=== PATIENT | female | born 1975 | race Caucasian/White ===

== ENCOUNTER 2017-10-09 05:01 | Observation (INO) ==
[2017-10-09 05:34] LABS: Microscopic, Urine URINE MICROSCOPIC (MICROSCOPIC)
[2017-10-09 05:35] LABS: Appearance,Urine CLEAR (Clear); Basophils % 0.2 % (0.1-2.0); Bilirubin,Urine Negative (Negative); Blood, Urine Negative (Negative); Color,Urine YELLOW (Yellow); Eosinophils # 0.3 K/mm3 (0.0-0.4); Eosinophils % 2.1 % (0.1-12.0); Glucose,Urine (UA) Negative (Negative); Hematocrit 36.7 % (37.0-47.0); Hemoglobin 12.1 g/dL (12.2-16.2); Ketones,Urine Negative (Negative); Leukocyte Esterase,Urine TRACE (Negative); Lymphocytes # 1.8 K/mm3 (0.7-4.5); Lymphocytes % 12.2 K/mm3 (10-50); Mean Corpuscular HGB Conc 32.9 g/dL (31.8-35.4); Mean Corpuscular Hemoglobin 26.6 pg (27.0-31.2); Mean Platelet Volume 7.9 fl (7.4-10.4); Monocytes # 0.3 K/mm3 (0.1-1.0); Neutrophils # 12.5 K/mm3 (1.8-7.8); Neutrophils % 83.4 % (37.0-80.0); PH,Urine 5.5 (5.0-8.5); Platelet Count 351 K/mm3 (142-424); Protein,Urine Negative (Negative); Red Blood Count 4.53 M/mm3 (4.20-5.40); Red Cell Distribution Width 15.1 % (11.5-17.5); Specific Gravity, Urine >= 1.030 (1.005-1.030); Urobilinogen,Urine 0.2 EU/dl (0.2)
[2017-10-09 05:39] LABS: Amorphous Sediment,Urine Trace /lpf
[2017-10-09 06:00] LABS: Albumin Level 3.5 gm/dL (3.4-5.0); Albumin/Globulin Ratio 0.9 (1.1-1.8); Anion Gap 16.4 mEq/L (5-15); Bilirubin,Total 0.3 mg/dL (0.2-1.0); Calcium 9.3 mg/dL (8.5-10.1); Globulin 3.9 gm/dl (1.3-3.2); Lymphocytes % 19 % (10-50); Neutrophils % 75 % (42-76); Potassium 4.4 mmoL/L (3.5-5.1); RBC Morphology Normal; Total Cells Counted 100; Total Protein,Serum 7.4 gm/dL (6.4-8.2)
--- NOTE | 2017-10-09 06:36 | Emergency Department Note ---
ED Disposition Clinical Impression: Cholangitis Disposition: Admitted as Observation Condition on Discharge: Good Instructions: DI for Acute Abdomen - Critical Care Critical Care Time: No Attestation: On 10/09/17, the high probability of a clinically significant, sudden or life threatening deterioration of the following system(s) required my full and direct attention, intervention and personal management. The time I documented below is in addition to time spent performing reported procedures but includes the following listed in this critical care notation. Medical Decision Making - Medical Records Medical records reviewed: Yes: I reviewed the patient's medical records. - Saleem Inquiry Pt receiving controlled substance: No Vital Signs: 10/09/17 05:06 Temperature 97.7 F Temperature Source Oral Pulse Rate [Right Radial] 78 Respiratory Rate 20 Blood Pressure [Right Arm] 136/79 Blood Pressure Mean [Right Arm] 98 02 Sat by Pulse Oximetry 98 - Lab Data Lab results reviewed: Yes: I reviewed the patient's lab results. Lab Results 10/09/17 05:25: Urine Color Yellow, Urine Appearance Clear, Urine pH 5.5, Ur Specific [place] >= 1.030, Urine Protein Negative, Urine Glucose (UA) Negative, Urine Ketones Negative, Urine Blood Negative, Urine Nitrate Negative, Urine Bilirubin Negative, Urine Urobilinogen 0.2, Ur Leukocyte Esterase Trace, Urine WBC 3-5, Ur Squamous Epith Cells 10-20, Amorphous Sediment Trace 10/09/17 05:25: WBC 15.0 H, RBC 4.53, Hgb 12.1 L, Hct 36.7 L, MCV 81.0, MCH 26.6 L, MCHC 32.9, RDW 15.1, Plt Count 351, MPV 7.9, Neut % (Auto) 83.4 H, Lymph % (Auto) 12.2, [place] % (Auto) 2.0, Eos % (Auto) 2.1, Baso % (Auto) 0.2, Neut # (Auto) 12.5 H, Lymph # (Auto) 1.8, [place] # (Auto) 0.3, Eos # (Auto) 0.3, Baso # (Auto) 0.0, Total Counted 100, Neutrophils % (Manual) 75, Band Neutrophils % 6.0, Lymphocytes % (Manual) 19, Platelet Estimate Normal, RBC Morphology Normal 10/09/17 05:25: Sodium 135 L, Potassium 4.4, Chloride 101, Carbon Dioxide 22, Anion Gap 16.4 H, BUN 13, Creatinine 0.86, Estimated Creat Clear 136, Estimated GFR 73, Est GFR ( Amer) 88, Glucose 127 H, Calcium 9.3, Total Bilirubin 0.3, AST 28, ALT 28, Alkaline Phosphatase 92, Total Creatine Kinase 122, CK-MB ( CK-2) 0.5, CK-MB (CK-2) Rel Index 0.4, Troponin I 0.12 H, Total Protein 7.4, Albumin 3.5, Globulin 3.9 H, Albumin/Globulin Ratio 0.9 L, Amylase 39 10/09/17 05:25: Lipase 99 Result diagrams: 10/09/17 05:25 10/09/17 05:25 Orders (Tests/Meds): ED MEDICATIONS Discontinued Medications Generic Name Dose Route Start Last Admin Trade Name Freq PRN Reason Stop Dose Admin Belladonna Alkaloids 60 ml 10/09/17 05:15 10/09/17 05:20 Gi Cocktail 60ml Udc PO 10/09/17 05:16 60 ml ONCE ONE Administration Ondansetron HCl 4 mg 10/09/17 05:15 10/09/17 05:20 Zofran 4mg/2ml Vial IV 10/09/17 05:16 4 mg ONCE ONE Administration ORDERS Category Date Time Status US gallbladder Stat Exams 10/09/17 07:39 Ordered - Radiology Data #1 Image(s): Chest Image Reviewed: Yes I reviewed the patient's radiology image Preliminary Findings: Normal/NAD - CT Data CT Scan: Abdomen, Pelvis Time Received: 06:[address] Reviewed: Yes: I have viewed the radiologist's interpretation Preliminary Findings: Abnormal - ECG Data Tracing #1 I reviewed this ECG and interpreted as documented below: Normal Sinus Rhythm: Yes Ischemic changes: non-specific ST-T wave changes - Physician Consults Physician Consulted: ana Reason -: Admission Nausea/Vomiting/Diarrhea HPI - General Chief complaint: Abdominal Pain Stated complaint: Abdominal Pain Time Seen by Provider: 10/09/17 06:28 Mode of Arrival: Ambulatory Limitations: No Limitations Description of Symptoms (Recalled from ER Triage Doc. by RN): mid abd pain since last pm. nausea. pt states she is "having galbladder pain" - History of Present Illness HPI Narrative: this wf with upper abd pain with nausea with hx of breast cancer - no fever or diabetes and no known ht disease MD complaint: nausea, vomiting, abdominal pain Onset (ago): hour(s) Associated Abdominal Pain: Yes Severity: moderate - Related Data Home Medications Medication Instructions Recorded Confirmed tamoxifen 20 mg tablet 37.5 mg PO QDAY tab 08/08/17 10/09/17 venlafaxine ER 75 mg 75 mg PO QDAY 08/08/17 10/09/17 capsule,extended release 24 hr Allergies Allergy/AdvReac Type Severity Reaction Status Date / Time No Known Allergies Allergy Verified 10/09/17 05:10 [facility] History I have reviewed the patient's past medical history: Yes Medical History: Reports:: Cancer (breast) Denies:: Diabetes Mellitus Type 1, Diabetes Mellitus Type 2, MRSA Laterality Cases: Bilateral: Mastectomy Amputation: Yes (bilateral mastectomy) Fractures: No Comment: Reconstructive Surgery - Social History Smoking Status: Former smoker Alcohol Intake: never - Psychiatric History Expresses thoughts of harming self/others: None Suicide Plan Description: No Plan ROS Obtained: Yes All systems reviewed & no additional complaints - Constitutional Constitutional: Denies fever(s) - Eyes Eyes: Denies change in vision - ENT Ears, Nose, Mouth, and Throat: Denies sore throat - Cardiovascular Cardiovascular: Denies chest pain - Respiratory Respiratory: No cough - Gastrointestinal Gastrointestingal: Reports: abdominal pain, nausea, vomiting. Denies: diarrhea - Genitourinary Female Genitourinary: Denies dysuria, Denies flank pain - Musculoskeletal Musculoskeletal: Denies joint pain, Denies joint stiffness - Integumentary/Breasts Skin/Breast: Denies rash - Neurologic Neurologic: Denies seizure-like activity Physical Exam - General General appearance: alert - Head Head exam: normocephalic - Eye Eye exam: Present: PERRL, EOMI. Absent: scleral icterus - ENT ENT exam: Present: mucous membranes dry - Neck Neck exam: Present: trachea midline - Respiratory Respiratory exam: Present: normal lung sounds bilaterally. Absent: respiratory distress - Cardiovascular Cardiovascular exam: Present: regular rate, systolic murmur - Abdominal Exam Abdominal exam: Present: soft, tenderness, Garcia's sign. Absent: guarding, rebound Abdominal tenderness: Present: RUQ - Extremities Exam Extremities exam: Absent: full ROM - Neurological Exam Neurological exam: Present: alert, oriented X3, CN II-XII intact - Skin Skin exam: Absent: rash
--- NOTE | 2017-10-09 09:36 | History & Physical Report ---
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 This was associated with nausea but she did not vomit. The pain persisted throughout the night and she presented to the ER early this AM. She is usually constipated and bowels have been moving. She denies dark and bloody stools. With evaluation in the ER US of the RUQ revealed and large Gallstone. WBC's were elevated as well. Troponin I was slightly elevated at 0.12. The decision was made to admit her with a surgical consultation. Will repeat TI At time of exam patient's pain has improved but not resoleved. She has received a GI cocktail and Zofran . <DarrylSun 10/09/17 13:14> [facility] History Medical History: Reports:: Cancer (breast), Gastroesophageal Reflux Disease(GERD ), Migraine Denies:: Atherosclerotic Heart Disease, Chronic Obstructive Pulmonary Disease (COPD), Coronary Artery Disease, Diabetes Mellitus Type 1, Diabetes Mellitus Type 2, MRSA <DarrylSun 10/09/17 09:43> Other Medical History: Denies: Hypothyroidism <DarrylSun 10/09/17 09:43> Comment: hyperlipidemia from chemo; neuropathy from chemo;hot flushes <Sun Andrews 10/09/17 09:43> Laterality Cases: Bilateral: Mastectomy, Tonsillectomy <Sun Andrews 09:43> Other Surgeries: Yes: Cardiac Surgery, Dilation and Curettage <Sun Andrews 10/09/17 11:25> Amputation: Yes (bilateral mastectomy) <Sun Andrews 10/09/17 09:36> Fractures: No <Sun Andrews 10/09/17 09:36> - *Social History Smoking Status: Former smoker <Sun Andrews 10/09/17 09:36> Alcohol Intake: never <Sun Andrews 10/09/17 09:36> - Psychiatric History Expresses thoughts of harming self/others: None <Sun Andrews 10/09/17 09: 36> Suicide Plan Description: No Plan <Sun Andrews 10/09/17 09:36> *Family Hx:: no Cancer, no Coronary Artery Disease, no Diabetes <Sun Andrews 10/09/17 11:25> Review of Systems - Constitutional Denies body ache(s) <Sun Andrews 10/09/17 11:25> - ENT Denies difficulty swallowing, Denies ear pain, Denies sore throat <Sun Andrews 10/09/17 11:25> - *Cardiovascular Denies chest pain, Denies shortness of breath, Denies rapid, pounding, or irregular heartbeat <Sun Andrews 10/09/17 11:25> - *Respiratory Denies cough, Denies shortness of breath <Sun Andrews 10/09/17 11:25> - *Gastrointestinal Reports abdominal pain, Reports constipation, Reports heartburn, Reports nausea , Denies change in bowel habits, Denies vomiting blood, Denies vomiting < Sun Andrews 10/09/17 11:25> - *Genitourinary Reports absent period, Reports hot flashes, Denies painful urination <Sun Andrews 10/09/17 11:25> - *Musculoskeletal Comments: neuropathy of hands and feet from chemo; Effexor has helped <Sun Andrews 10/09/17 11:25> - *Neurologic Denies seizure-like activity <Sun Andrews 10/09/17 09:36> Meds Home Medications Medication Instructions Recorded Confirmed Type tamoxifen 20 mg tablet 37.5 mg PO QDAY tab 08/08/17 10/09/17 History venlafaxine ER 75 mg 75 mg PO QDAY 08/08/17 10/09/17 History capsule,extended release 24 hr <Diony Puga 10/09/17 14:02> Allergies Allergy/AdvReac Type Severity Reaction Status Date / Time docetaxel [From Taxotere] Allergy Verified 10/09/17 10:28 <Diony Puga 10/09/17 14:02> Exam Vital signs and Labs for Last 24 Hours: Temp Pulse Resp BP Pulse Ox 98.2 F 71 188 H 127/79 95 10/09/17 10:13 10/09/17 10:14 10/09/17 10:14 10/09/17 10:13 10/09/17 10:14 Laboratory Results - last 24 hr 10/09/17 09:45: Troponin I < 0.02 <Diony Puga - 10/09/17 14:02> Temp Pulse Resp BP Pulse Ox 98.0 F 56 L 18 119/59 98 10/09/17 09:18 10/09/17 09:18 10/09/17 09:18 10/09/17 09:18 10/09/17 05:06 <Sun Andrews - 10/09/17 09:36> I & O for Last 24 hours: Intake & Output 10/07/17 10/08/17 10/09/17 10/10/17 11:59 11:59 11:59 11:59 Intake Total 480 / 480 Balance 480 / 480 Weight 219 lb 5 oz 219 lb 4.983 oz <Diony Puga - 10/09/17 14:02> Radiology Reports for the Last 24 Hours: 10/09/17 CT of abdomen and pelvis IMPRESSION: 1. Thickening of the colon which could be due to nondistention or colitis. 2. Minimal haziness of the pericholecystic fat nonspecific. Gallbladder ultrasound may be of further value. 3. Possible 4 cm left ovarian cyst which may be evaluated with ultrasound if clinically warranted 4. No evidence of appendicitis or obstructing ureteral calculus 10/09/17 CXR IMPRESSION: Mild bibasilar atelectasis 10/09/17 RUQ US IMPRESSION: Distended gallbladder with cholelithiasis <Sun Andrews - 10/09/17 13:09> - Constitutional no acute distress <AndrewsSun - 10/09/17 11:25> - *Routine HEENT Exam Eye: Present: PERRL. Absent: conjunctival icterus, scleral injection <Sun Andrews 10/09/17 11:25> ENT: Present: mucous membranes moist, oropharynx clear, dentition normal < DarrylSun - 10/09/17 11:25> - *Routine Neck Exam Present: supple, thyromegaly. Absent: carotid bruit, lymphadenopathy <Sun Andrews 10/09/17 11:25> - *Routine Respiratory Exam Present: CTA bilaterally (A&P) <Sun Andrews 10/09/17 13:09> - *Routine Cardiovascular Exam Present: RRR <Sun Andrews 10/09/17 11:25> - *Routine Abdominal Exam Present: soft, normoactive bowel sounds, tenderness (epigastrium and RUQ; + Garcia's) <Sun Andrews 10/09/17 11:25> - *Routine Extremities Exam Absent: edema, calf tenderness <Sun Andrews 10/09/17 11:25> - *Routine Neurological Exam Present: alert, oriented X3 <Sun Andrews 10/09/17 13:09> H&P: Result - Labs Labs: Cardiac Enzymes 10/09/17 Range/Units 09:45 Troponin I < 0.02 (0.00-0.06) ng/ml <Diony Puga 10/09/17 14:02> Assessment and Plan (1) Cholelithiases Current visit: Yes Status: Acute Category: Medical Code(s): K80.20 - Calculus of gallbladder without cholecystitis without obstruction (2) History of breast cancer Current visit: Yes Status: Chronic Category: Medical Code(s): Z85.3 - Personal history of malignant neoplasm of breast (3) GERD (gastroesophageal reflux disease) Current visit: Yes Status: Acute Category: Medical Code(s): K21.9 - Gastro-esophageal reflux disease without esophagitis <Diony Puga 10/09/17 14:02> (1) Cholelithiases Current visit: Yes Status: Acute Category: Medical Code(s): K80.20 - Calculus of gallbladder without cholecystitis without obstruction (2) History of breast cancer Current visit: Yes Status: Chronic Category: Medical Code(s): Z85.3 - Personal history of malignant neoplasm of breast (3) GERD (gastroesophageal reflux disease) Current visit: Yes Status: Acute Category: Medical Code(s): K21.9 - Gastro-esophageal reflux disease without esophagitis <Sun Andrews 10/09/17 13:10> - Assessment and plan all Dx Assessment and Plan for all problems:: Saw patient, concur with above note. <VivienDiony 10/09/17 14:02> Patient has been seen by Surgeon and plan is for [place] in the AM. She is on ABX, PPI, antinausea med and IVF. <Sun Andrews - 10/09/17 13:14>
--- NOTE | 2017-10-09 12:32 | Consult Report ---
*Admission Date: 10/09/17 *History of present illness: Patient is a pleasant 42-year-old white female history of breast cancer who has undergone bilateral mastectomy with reconstruction one year ago. She was in her usual state of health until yesterday evening approximately 9 PM at which time she developed sudden onset of sharp severe epigastric pain. There was some radiation to the right upper quadrant. This persisted throughout the evening and she presented to the emergency department early this morning. She was found to have a mild leukocytosis. She underwent CT scan which revealed findings of probable cholecystitis. She was admitted for inpatient management and ultrasound was formed which revealed gallstone with sonographic evidence of cholecystitis. Surgical consultation was obtained. Of note, she did have slightly above normal troponin which had normalized on recheck a few hours later. Review of Systems - Constitutional Reports anorexia - Eyes Denies change in vision - ENT Denies abnormal hearing - *Cardiovascular Denies chest pain - *Respiratory Denies shortness of breath - *Gastrointestinal Reports abdominal pain - *Genitourinary Denies painful urination - *Musculoskeletal Denies abnormal walking - *Neurologic Denies seizure-like activity [facility] History Medical History: Reports:: Cancer (breast), Gastroesophageal Reflux Disease(GERD ), Hyperlipidemia, Migraine Denies:: Atherosclerotic Heart Disease, Chronic Obstructive Pulmonary Disease (COPD), Coronary Artery Disease, Diabetes Mellitus Type 1, Diabetes Mellitus Type 2, MRSA Other Medical History: Denies: Hypothyroidism Laterality Cases: Bilateral: Lumpectomy, Mastectomy, Tonsillectomy Other Surgeries: Yes: Cardiac Surgery, Dilation and Curettage, Other Amputation: Yes (bilateral mastectomy) Fractures: No - *Social History Educational Level: Completed College Smoking Status: Former smoker Alcohol Intake: never Alcohol Intake Frequency:: holidays/special occasions only Occupational Status: employed Housing: house Household Members: spouse - Psychiatric History Expresses thoughts of harming self/others: None Suicide Plan Description: No Plan *Family Hx:: no Cancer, no Coronary Artery Disease, no Diabetes Meds Home Medications Medication Instructions Recorded Confirmed Type tamoxifen 20 mg tablet 37.5 mg PO QDAY tab 08/08/17 10/09/17 History venlafaxine ER 75 mg 75 mg PO QDAY 08/08/17 10/09/17 History capsule,extended release 24 hr Allergies Allergy/AdvReac Type Severity Reaction Status Date / Time docetaxel [From Taxotere] Allergy Verified 10/09/17 10:28 Exam Vital signs and Labs for Last 24 Hours: Temp Pulse Resp BP Pulse Ox 98.2 F 71 188 H 127/79 95 10/09/17 10:13 10/09/17 10:14 10/09/17 10:14 10/09/17 10:13 10/09/17 10:14 Laboratory Results - last 24 hr 10/09/17 09:45: Troponin I < 0.02 I & O for Last 24 hours: Intake & Output 10/07/17 10/08/17 10/09/17 10/10/17 11:59 11:59 11:59 11:59 Weight 219 lb 5 oz - Constitutional no acute distress - *Routine Respiratory Exam Present: CTA bilaterally - *Routine Cardiovascular Exam Present: RRR - *Routine Abdominal Exam Present: soft, tenderness Comments: She has tenderness in the epigastrium and right upper quadrant without guarding or rebound. Results - Labs 10/09/17 05:25 10/09/17 05:25 Laboratory Results - last 24 hr 10/09/17 09:45: Troponin I < 0.02 Assessment and Plan - Assessment and plan all Dx Assessment and Plan for all problems:: Patient has signs and symptoms with findings consistent with acute cholecystitis. Agree with antibiotics. Plan for laparoscopic with possibly open cholecystectomy tomorrow.
[2017-10-10 06:45] LABS: Basophils % 0.3 % (0.1-2.0); Eosinophils # 0.4 K/mm3 (0.0-0.4); Eosinophils % 5.3 % (0.1-12.0); Hematocrit 36.8 % (37.0-47.0); Hemoglobin 11.7 g/dL (12.2-16.2); Lymphocytes # 1.8 K/mm3 (0.7-4.5); Mean Corpuscular HGB Conc 31.9 g/dL (31.8-35.4); Mean Corpuscular Hemoglobin 26.5 pg (27.0-31.2); Mean Platelet Volume 7.6 fl (7.4-10.4); Monocytes # 0.4 K/mm3 (0.1-1.0); Monocytes % 5.6 % (1.7-9.3); Neutrophils # 4.9 K/mm3 (1.8-7.8); Neutrophils % 64.8 % (37.0-80.0); Platelet Count 288 K/mm3 (142-424); Red Blood Count 4.43 M/mm3 (4.20-5.40); Red Cell Distribution Width 15.2 % (11.5-17.5); White Blood Count 7.6 K/mm3 (4.8-10.8)
[2017-10-10 07:04] LABS: Anion Gap 9.9 mEq/L (5-15); Potassium 3.9 mmoL/L (3.5-5.1)
--- NOTE | 2017-10-10 07:04 | Progress Note ---
Subjective Patient reports: feels better Narrative: Patient feeling better with less pain. Exam Vital signs and Labs for Last 24 Hours: Temp Pulse Resp BP Pulse Ox 98.0 F 70 18 94/41 92 L 10/10/17 04:00 10/10/17 04:00 10/10/17 04:00 10/10/17 04:00 10/10/17 04:00 Laboratory Results - last 24 hr 10/09/17 09:45: Troponin I < 0.02 10/10/17 06:15: WBC 7.6 D, RBC 4.43, Hgb 11.7 L, Hct 36.8 L, MCV 83.0, MCH 26.5 L, MCHC 31.9, RDW 15.2, Plt Count 288, MPV 7.6, Neut % (Auto) 64.8, Lymph % (Auto) 24.0, [place] % (Auto) 5.6, Eos % (Auto) 5.3, Baso % (Auto) 0.3, Neut # ( Auto) 4.9, Lymph # (Auto) 1.8, [place] # (Auto) 0.4, Eos # (Auto) 0.4, Baso # (Auto ) 0.0 I & O for Last 24 hours: Intake & Output 10/07/17 10/08/17 10/09/17 10/10/17 11:59 11:59 11:59 11:59 Intake Total 3182 / 3182 Balance 3182 / 3182 Weight 219 lb 5 oz 219 lb 4.983 oz - *Routine Abdominal Exam Present: soft Progress Note: A&P (1) Cholelithiases Status: Acute Assessment and plan: Cholecystectomy today. Current Visit: Yes (2) History of breast cancer Status: Chronic Current Visit: Yes (3) GERD (gastroesophageal reflux disease) Status: Acute Current Visit: Yes
--- NOTE | 2017-10-10 07:27 | Pharmacy Consult Notes ---
[facility] Pharmacy VTE Monitoring - Patient Demographics Admission date: 10/09/17 Report Date: 10/10/17 Time: 07:27 Allergies/Adverse Reactions: Patient Allergies docetaxel [From Taxotere] Allergy (Verified 10/09/17 10:28) Height: 1.68 m Weight: 99.478 kg Patient Problems: Current Active Problems Cholangitis (Acute) Cholelithiases (Acute) History of breast cancer (Chronic) GERD (gastroesophageal reflux disease) (Acute) - VTE Risk Labs: VTE Related Lab Results Hgb 11.7 g/dL (12.2-16.2) L 10/10/17 06:15 Hct 36.8 % (37.0-47.0) L 10/10/17 06:15 Plt Count 288 K/mm3 (142-424) 10/10/17 06:15 BUN 8 mg/dL (7-18) D 10/10/17 06:15 Creatinine 0.91 mg/dL (0.55-1.02) 10/10/17 06:15 Estimated Creat Clear 128 mL/min (0-300) 10/10/17 06:15 Was VTE Risk Assessment Performed: Yes VTE Score: 2 VTE Risk Level: Low Risk Clinical Trial Participant: No - Prophylaxis VTE Prophylaxis Ordered?: Yes Types of VTE Prophylaxis: TEDS Knee High Location of Applied Device: Bilateral Lower Extremeties
--- NOTE | 2017-10-10 08:09 | Progress Note ---
<Sun Andrews - Last Filed: 10/10/17 08:06> Internal Medicine - PN: Subj *Date: 10/10/17 *Time: 08:06 Interval history: Feeling much better this a.m. States she slept. She had clear liquids yesterday without any problems. N.p.o. at present for surgery this a.m.; she is voiding QS. She is not nauseated, has not vomited, and abdominal pain is gone. White blood cell count is normal today. Second troponin I was normal.. Exam Vital signs and Labs for Last 24 Hours: Temp Pulse Resp BP Pulse Ox 97.8 F 67 18 99/41 93 L 10/10/17 07:38 10/10/17 07:38 10/10/17 07:38 10/10/17 07:38 10/10/17 07:38 Laboratory Results - last 24 hr 10/09/17 09:45: Troponin I < 0.02 10/10/17 06:15: WBC 7.6 D, RBC 4.43, Hgb 11.7 L, Hct 36.8 L, MCV 83.0, MCH 26.5 L, MCHC 31.9, RDW 15.2, Plt Count 288, MPV 7.6, Neut % (Auto) 64.8, Lymph % (Auto) 24.0, [place] % (Auto) 5.6, Eos % (Auto) 5.3, Baso % (Auto) 0.3, Neut # ( Auto) 4.9, Lymph # (Auto) 1.8, [place] # (Auto) 0.4, Eos # (Auto) 0.4, Baso # (Auto ) 0.0 10/10/17 06:15: Sodium 140, Potassium 3.9, Chloride 108 H, Carbon Dioxide 26, Anion Gap 9.9, BUN 8 D, Creatinine 0.91, Estimated Creat Clear 128, Estimated GFR 68, Est GFR ( Amer) 82, Glucose 94 I & O for Last 24 hours: Intake & Output 10/07/17 10/08/17 10/09/17 10/10/17 11:59 11:59 11:59 11:59 Intake Total 3182 / 3182 Balance 3182 / 3182 Weight 219 lb 5 oz 219 lb 4.983 oz - Constitutional no acute distress - *Routine Respiratory Exam Present: CTA bilaterally (Anteriorly and posteriorly) - *Routine Cardiovascular Exam Present: RRR - *Routine Abdominal Exam Present: soft, normoactive bowel sounds, tenderness. Absent: distended, guarding Comments: Mild tenderness in epigastrium no right upper quadrant tenderness - *Routine Extremities Exam Absent: edema, calf tenderness, tenderness - *Routine Neurological Exam Present: alert, oriented X3 Assessment and Plan (1) Cholelithiases Current visit: Yes Status: Acute Category: Medical Code(s): K80.20 - Calculus of gallbladder without cholecystitis without obstruction (2) History of breast cancer Current visit: Yes Status: Chronic Category: Medical Code(s): Z85.3 - Personal history of malignant neoplasm of breast (3) GERD (gastroesophageal reflux disease) Current visit: Yes Status: Acute Category: Medical Code(s): K21.9 - Gastro -esophageal reflux disease without esophagitis - Assessment and plan all Dx Assessment and Plan for all problems:: For cholecystectomy this a.m. <Diony Puga - Last Filed: 10/10/17 08:41> Internal Medicine - PN: Subj *Date: 10/10/17 *Time: 08:40 Exam Vital signs and Labs for Last 24 Hours: Temp Pulse Resp BP Pulse Ox 97.8 F 67 18 99/41 93 L 10/10/17 07:38 10/10/17 07:38 10/10/17 07:38 10/10/17 07:38 10/10/17 07:38 Laboratory Results - last 24 hr 10/09/17 09:45: Troponin I < 0.02 10/10/17 06:15: WBC 7.6 D, RBC 4.43, Hgb 11.7 L, Hct 36.8 L, MCV 83.0, MCH 26.5 L, MCHC 31.9, RDW 15.2, Plt Count 288, MPV 7.6, Neut % (Auto) 64.8, Lymph % (Auto) 24.0, [place] % (Auto) 5.6, Eos % (Auto) 5.3, Baso % (Auto) 0.3, Neut # ( Auto) 4.9, Lymph # (Auto) 1.8, [place] # (Auto) 0.4, Eos # (Auto) 0.4, Baso # (Auto ) 0.0 10/10/17 06:15: Sodium 140, Potassium 3.9, Chloride 108 H, Carbon Dioxide 26, Anion Gap 9.9, BUN 8 D, Creatinine 0.91, Estimated Creat Clear 128, Estimated GFR 68, Est GFR ( Amer) 82, Glucose 94 I & O for Last 24 hours: Intake & Output 10/07/17 10/08/17 10/09/17 10/10/17 11:59 11:59 11:59 11:59 Intake Total 3182 / 3182 Balance 3182 / 3182 Weight 219 lb 5 oz 219 lb 4.983 oz Assessment and Plan (1) Cholelithiases Current visit: Yes Status: Acute Category: Medical Code(s): K80.20 - Calculus of gallbladder without cholecystitis without obstruction (2) History of breast cancer Current visit: Yes Status: Chronic Category: Medical Code(s): Z85.3 - Personal history of malignant neoplasm of breast (3) GERD (gastroesophageal reflux disease) Current visit: Yes Status: Acute Category: Medical Code(s): K21.9 - Gastro -esophageal reflux disease without esophagitis - Assessment and plan all Dx Assessment and Plan for all problems:: Saw patient, concur with above note.
--- NOTE | 2017-10-10 14:23 | Operative Note ---
Date of procedure: 10/10/17 Pre-op Diagnosis:: Cholecystitis Post-op Diagnosis:: Acute calculus cholecystitis Procedure performed:: Laparoscopic cholecystectomy Surgeon:: Subhash Gao MD Unit Coordinator(s):: Nancy Ryder FINANCIAL INSTITUTION MANAGER:: Tariq Stanley Anesthesia: GETA Estimated blood loss (mL): 30 Clinical Note:: Patient is a 42-year-old white female who was admitted early yesterday signs and symptoms consistent with acute cholecystitis. She was started on intravenous antibiotics. Surgical consultation was obtained. Plan was made for cholecystectomy. Following morning, this morning on 10/10/17, patient actually felt better. She was scheduled for cholecystectomy earlier that afternoon. Operative findings:: Patient had an acutely inflamed distended gallbladder with thickening with edema and pericholecystic fluid. Operative note:: Consent was obtained and patient was taken to the operating room. She was positioned in a supine position and general. Abdomen was prepped and draped in the standard surgical fashion. Subumbilical skin incision was made and while performing abdominal wall lift Veress needle was inserted. CO2 pneumoperitoneum was achieved 15 mmHg. 10/11 mm optical trocar was inserted at the umbilicus. Intraperitoneal contents were visualized. She was positioned in reverse Trendelenburg left side down and a couple of 5 mm trochars were inserted in the right upper abdomen. 10 mm trocar was inserted in the epigastrium. She was found to have an acutely inflamed gallbladder. 30 angled laparoscope was inserted. Gallbladder was grasped and retracted anteriorly and superiorly of the dome the liver. Gallbladder was thickened, tense, edematous. Infundibulum/Alexis's pouch the gallbladder was retracted anterior laterally. There is appreciable fatty infiltration around the neck of the gallbladder. Blunt dissection was carried out bluntly dissecting free the cystic structures. Ultimately the cystic duct and cystic artery were clearly identified and isolated. Cystic duct was multiply clipped and then divided. Cystic artery was carefully coagulated with Alfred ultrasonic harmonic amado and divided. The gallbladder was dissected free from the liver in a retrograde fashion using Alfred ultrasonic harmonic amado. Due to the acute inflammatory process the gallbladder somewhat spontaneously partially peeled free from the liver bed. Gallbladder was placed within an Endo Catch retrieval device and removed from the peritoneal cavity via the umbilical trocar site which required some extension of the fascial and skin incisions for delivery. Gallbladder fossa and perihepatic space were irrigated and aspirated until clear. Use of electrocautery was used on the gallbladder fossa for good hemostasis. Trochars were removed as CO2 pneumoperitoneum was evacuated. Fascia at the umbilicus was closed with interrupted 0 Vicryl [id number] sutures. Local anesthetic was infiltrated. Skin incisions were closed with 4-0 Monocryl in a subcuticular fashion. Steri-Strips and dressings were applied. Condition: stable Disposition: PACU Complications:: None immediately apparent
--- NOTE | 2017-10-10 14:30 | Progress Note ---
[facility] Anesthesia Checklist - Structural Data Admitted From: Inpatient Planned Operative Procedure/s: lap lizette Consent for Planned Operative Procedure(s) Verified: Yes Verified Documents: Surgical Consent - Airway Assessment C-Spine Mobility Assessed: Yes TMJ Mobility Assessed: Yes Dentition: Good Dentition - Neurological Assessment Level of Consciousness: Awake, Alert - Anesthesia Plan Anesthesia Risk discussed: Yes Anesthesia Plan: Verified ASA Class: II Anesthesia Type: General [facility] Anesthesia HX I have reviewed the patient's past medical history: Yes Medical History: Reports:: Cancer (breast), Gastroesophageal Reflux Disease(GERD ), Hyperlipidemia, Migraine Denies:: Atherosclerotic Heart Disease, Chronic Obstructive Pulmonary Disease (COPD), Coronary Artery Disease, Diabetes Mellitus Type 1, Diabetes Mellitus Type 2, MRSA Other Medical History: Denies: Hypothyroidism Laterality Cases: Bilateral: Lumpectomy, Mastectomy, Tonsillectomy Other Surgeries: Yes: Cardiac Surgery, Dilation and Curettage, Other Amputation: Yes (bilateral mastectomy) Fractures: No *Family Hx:: no Cancer, no Coronary Artery Disease, no Diabetes
--- NOTE | 2017-10-10 14:31 | Progress Note ---
[facility] Anesthesia Record Part II Discharge Time: 15:10 Destination: floor PACU nurse assessment reviewed?: Yes Patient Condition:: Good Anesthesia Complications:: None
--- NOTE | 2017-10-10 14:31 | Progress Note ---
[facility] Anesthesia Record Part I Intake, IV Amount: 1,200 Estimated blood loss (mL): 0 Urine output (mL): 0 Blood Pressure: 89/45 SaO2: 98 Pulse Rate: 75 Respiratory Rate: 12 Temperature: 97.9 F Patient is:: Awake, Stable Stable to PACU at:: 14:30
--- NOTE | 2017-10-11 07:00 | Progress Note ---
Subjective Patient reports: feels better Narrative: Some soreness. Tolerating bland diet. Exam Vital signs and Labs for Last 24 Hours: Temp Pulse Resp BP Pulse Ox 98.9 F 76 16 105/46 94 L 10/11/17 04:00 10/11/17 04:00 10/11/17 04:00 10/11/17 04:00 10/11/17 04:00 Laboratory Results - last 24 hr 10/10/17 06:15: Sodium 140, Potassium 3.9, Chloride 108 H, Carbon Dioxide 26, Anion Gap 9.9, BUN 8 D, Creatinine 0.91, Estimated Creat Clear 128, Estimated GFR 68, Est GFR ( Amer) 82, Glucose 94 10/10/17 12:13: Urine HCG, Qual Negative I & O for Last 24 hours: Intake & Output 10/08/17 10/09/17 10/10/17 10/11/17 11:59 11:59 11:59 11:59 Intake Total 3182 / 3182 3455 / 3455 Output Total 1100 / 1100 Balance 3182 / 3182 2355 / 2355 Weight 219 lb 5 oz 219 lb 4.983 oz - *Routine Abdominal Exam Present: soft Comments: Some serosanguineous drainage at umbilical incision. Progress Note: A&P (1) Cholelithiases Status: Acute Assessment and plan: Okay for discharge today. Will see in office in two weeks. Current Visit: Yes (2) History of breast cancer Status: Chronic Current Visit: Yes (3) GERD (gastroesophageal reflux disease) Status: Acute Current Visit: Yes
[2017-10-11 07:25] VITALS: BP 138/84
--- NOTE | 2017-10-11 08:03 | Progress Note ---
<Sun Andrews - Last Filed: 10/11/17 08:00> Internal Medicine - PN: Subj *Date: 10/11/17 *Time: 08:00 Interval history: Patient had a cholecystectomy yesterday. She was sore last evening and is less sore this morning. She denies nausea. She has been tolerating bland diet. She is voiding without difficulty. She has been seen by Dr. Gao this morning and plans to go home. She ambulates without problems. She denies chest pain and shortness of breath Exam Vital signs and Labs for Last 24 Hours: Temp Pulse Resp BP Pulse Ox 98.2 F 65 20 138/84 96 10/11/17 07:23 10/11/17 07:23 10/11/17 07:23 10/11/17 07:23 10/11/17 07:23 Laboratory Results - last 24 hr 10/10/17 12:13: Urine HCG, Qual Negative I & O for Last 24 hours: Intake & Output 10/08/17 10/09/17 10/10/17 10/11/17 11:59 11:59 11:59 11:59 Intake Total 3182 / 3182 3455 / 3455 Output Total 1100 / 1100 Balance 3182 / 3182 2355 / 2355 Weight 219 lb 5 oz 219 lb 4.983 oz - Constitutional no acute distress - *Routine Respiratory Exam Present: CTA bilaterally (Anteriorly and posteriorly) - *Routine Cardiovascular Exam Present: RRR - *Routine Abdominal Exam Present: soft, normoactive bowel sounds, tenderness Comments: Postoperative tenderness. Wounds with Telfa dressing clean and dry - *Routine Extremities Exam Absent: edema, calf tenderness - *Routine Neurological Exam Present: alert, oriented X3 Assessment and Plan (1) Cholelithiases Current visit: Yes Status: Acute Category: Medical Code(s): K80.20 - Calculus of gallbladder without cholecystitis without obstruction (2) History of breast cancer Current visit: Yes Status: Chronic Category: Medical Code(s): Z85.3 - Personal history of malignant neoplasm of breast (3) GERD (gastroesophageal reflux disease) Current visit: Yes Status: Acute Category: Medical Code(s): K21.9 - Gastro -esophageal reflux disease without esophagitis (4) S/P cholecystectomy Current visit: Yes Status: Acute Category: Surgical Code(s): Z90.49 - Acquired absence of other specified parts of digestive tract - Assessment and plan all Dx Assessment and Plan for all problems:: Patient will be discharged today. She will continue on with a bland diet. <Diony Puga - Last Filed: 10/11/17 08:30> Internal Medicine - PN: Subj *Date: 10/11/17 *Time: 08:30 Exam Vital signs and Labs for Last 24 Hours: Temp Pulse Resp BP Pulse Ox 98.2 F 65 20 138/84 96 10/11/17 07:23 10/11/17 07:23 10/11/17 07:23 10/11/17 07:23 10/11/17 07:23 Laboratory Results - last 24 hr 10/10/17 12:13: Urine HCG, Qual Negative I & O for Last 24 hours: Intake & Output 10/08/17 10/09/17 10/10/17 10/11/17 11:59 11:59 11:59 11:59 Intake Total 3182 / 3182 3455 / 3455 Output Total 1100 / 1100 Balance 3182 / 3182 2355 / 2355 Weight 219 lb 5 oz 219 lb 4.983 oz Assessment and Plan (1) Cholelithiases Current visit: Yes Status: Acute Category: Medical Code(s): K80.20 - Calculus of gallbladder without cholecystitis without obstruction (2) History of breast cancer Current visit: Yes Status: Chronic Category: Medical Code(s): Z85.3 - Personal history of malignant neoplasm of breast (3) GERD (gastroesophageal reflux disease) Current visit: Yes Status: Acute Category: Medical Code(s): K21.9 - Gastro -esophageal reflux disease without esophagitis (4) S/P cholecystectomy Current visit: Yes Status: Acute Category: Surgical Code(s): Z90.49 - Acquired absence of other specified parts of digestive tract - Assessment and plan all Dx Assessment and Plan for all problems:: Saw patient, concur with above note.
--- NOTE | 2017-10-11 11:39 | Discharge Summary ---
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 This was associated with nausea but she did not vomit. The pain persisted throughout the night and she presented to the ER early this AM. She is usually constipated and bowels have been moving. She denies dark and bloody stools. With evaluation in the ER US of the RUQ revealed and large Gallstone. WBC's were elevated as well. Troponin I was slightly elevated at 0.12. The decision was made to admit her with a surgical consultation. Will repeat TI. Hospital Course Hospital Course: The patient was started on abx and was seen by Dr. Gao. He planned for cholecystectomy. Her WBC normalized and her second troponin I was normal. She had a cholecystectomy and tolerated this well. She was able to eat a bland diet post surgery and was stable to be discharged home with a f/u with Dr. Gao. Objective Vital signs: Temp Pulse Resp BP Pulse Ox 98.2 F 65 20 138/84 96 10/11/17 07:23 10/11/17 07:23 10/11/17 07:23 10/11/17 07:23 10/11/17 07:23 Narrative: - Constitutional no acute distress - *Routine HEENT Exam Eye: Present: PERRL. Absent: conjunctival icterus, scleral injection ENT: Present: mucous membranes moist, oropharynx clear, dentition normal - *Routine Neck Exam Present: supple, thyromegaly. Absent: carotid bruit, lymphadenopathy - *Routine Respiratory Exam Present: CTA bilaterally (A&P) - *Routine Cardiovascular Exam Present: RRR - *Routine Abdominal Exam Present: soft, normoactive bowel sounds, tenderness (epigastrium and RUQ; + Garcia's) - *Routine Extremities Exam Absent: edema, calf tenderness - *Routine Neurological Exam Present: alert, oriented X3 Results Labs on day of discharge: Labs from last 24 hours 10/10/17 12:13 Urine HCG, Qual Negative DS: Diagnosis - Discharge Diagnosis (1) Cholelithiases Status: Acute (2) GERD (gastroesophageal reflux disease) Status: Acute (3) S/P cholecystectomy Status: Acute (4) History of breast cancer Status: Chronic Discharge Plan - Patient Discharge Instructions ACTIVITY: Limited activity (per Dr. Gao) DIET: continue same diet Patient Instructions: DI for Cholecystectomy, Cholecystectomy -- Laparoscopic Surgery - Follow up Plan Follow up with: Subhash Gao MD [Staff Physician] - 2 weeks Disposition: Home, Self-Intermediate Medications: Home Medications Medication Instructions Recorded Confirmed Type tamoxifen 20 mg tablet 37.5 mg PO DAILY tab 08/08/17 10/10/17 History venlafaxine ER 75 mg 75 mg PO DAILY 08/08/17 10/10/17 History capsule,extended release 24 hr Prescriptions/Medication Reconciliation: Continue venlafaxine ER 75 mg capsule,extended release 24 hr 75 mg PO DAILY tamoxifen 20 mg tablet 37.5 mg PO DAILY tab
== END 2017-10-11 09:58 | disposition home or self-care (01) ==
LOC: 2ND 05:01 → ER 05:01 → 2ND 09:30
PROVIDERS: ADMIT Family Medicine; ATTEND Family Medicine

== ENCOUNTER → 2018-06-26 09:40 | Outpatient (POV) | payer BC, SELFPAY | PROVIDERS: Visit Provider Dermatology | DX: Z00.00 Encounter for general adult medical examination without abnormal findings (principal) ==

== ENCOUNTER → 2019-07-12 16:37 | Outpatient (CLI) | payer BC, SELFPAY ==
[2019-07-12 16:58] LABS: Basophils % 0.4 % (0.1-2.0); Eosinophils # 0.4 K/mm3 (0.0-0.4); Eosinophils % 4.1 % (0.1-12.0); Hematocrit 41.7 % (37.0-47.0); Hemoglobin 13.6 g/dL (12.2-16.2); Lymphocytes # 3.4 K/mm3 (0.7-4.5); Lymphocytes % 38.3 % (10-50); Mean Corpuscular HGB Conc 32.5 g/dL (31.8-35.4); Mean Corpuscular Hemoglobin 27.5 pg (27.0-31.2); Mean Corpuscular Volume 84.5 fl (81-99); Mean Platelet Volume 7.7 fl (7.4-10.4); Monocytes # 0.4 K/mm3 (0.1-1.0); Monocytes % 4.4 % (1.7-9.3); Neutrophils # 4.7 K/mm3 (1.8-7.8); Neutrophils % 52.8 % (37.0-80.0); Platelet Count 300 K/mm3 (142-424); Red Blood Count 4.93 M/mm3 (4.20-5.40); White Blood Count 8.9 K/mm3 (4.8-10.8)
[2019-07-12 18:33] LABS: Alanine Aminotransferase 25 U/L (12-78); Albumin Level 3.4 gm/dL (3.4-5.0); Alkaline Phosphatase 81 U/L (46-116); Anion Gap 14.9 mEq/L (5-15); Aspartate Amino Transferase 18 U/L (15-37); Bilirubin,Total 0.1 mg/dL (0.2-1.0); Blood Urea Nitrogen 11 mg/dL (7-18); Calcium 8.4 mg/dL (8.5-10.1); Carbon Dioxide 26 mmol/L (21.0-32.0); Chloride 106 mmol/L (98-107); Creatinine,Serum 0.89 mg/dL (0.55-1.02); Estimated Glomerular Filt Rate 69 ml/min (>60); Free T4 (Free Thyroxine) 0.71 ng/dl (0.76-1.46); GFR (African American) 84 ML/MIN (>60); Globulin 3.5 gm/dl (1.3-3.2); Glucose 75 mg/dL (74-106); Potassium 3.9 mmoL/L (3.5-5.1); Sodium 143 mmol/L (136-145); Thyroid Stimulating Hormone 3.53 uIU/ml (0.358-3.740); Total Protein,Serum 6.9 gm/dL (6.4-8.2)
[2019-07-14 16:28] LABS: Vitamin B12 207 pg/mL (232-1245)
== END ==
PROVIDERS: Visit Provider Physician Assistant
DX: R42 Dizziness and giddiness (principal); R00.2 Palpitations
CPT/HCPCS: 36415; 80053; 82607; 84439; 84443; 85025

== ENCOUNTER → 2019-07-15 13:51 | Outpatient (CLI) | payer BC, SELFPAY | PROVIDERS: PCP Physician Assistant; Visit Provider Physician Assistant | DX: R00.2 Palpitations (principal) | CPT/HCPCS: 93225; 93226 ==

== ENCOUNTER → 2019-07-23 07:51 | Outpatient (CLI) | payer BC, SELFPAY ==
--- NOTE | 2019-07-23 07:58 | CA_ITS ---
APPROVED REPORT Head Of Loss Prevention: TAYLOR Laterality: Bilateral Study Quality: Good Indications: VERTIGO Doppler Spectral Velocity Analysis dICA (R) 78.50/34.60 cm/s dICA (L) 132.20/53.00 cm/s Piper (R) 111.30/30.90 cm/s Piper (L) 90.10/34.10 cm/s pICA (R) 109.40/29.90 cm/s pICA (L) 82.10/21.10 cm/s dCCA (R) 89.50/36.10 cm/s dCCA (L) 72.10/27.50 cm/s pCCA (R) 103.80/32.50 cm/s pCCA (L) 77.30/26.50 cm/s Vert (R) 46.80/14.20 cm/s Vert (L) 53.80/16.70 cm/s ICA/CCA 1.24 ICA/CCA 1.83 Findings The right carotid arterial system appeared to be normal without stenosis of the bulb or internal carotid artery. The left carotid arterial system appeared to be normal without stenosis of the bulb or internal carotid artery. Antegrade flow seen bilateral vertebral arteries. Conclusion Normal, no stenosis Electronically signed by : Michael Short MD 07/23/2019 16:11:52
== END ==
PROVIDERS: PCP Physician Assistant; Visit Provider Physician Assistant
DX: R42 Dizziness and giddiness (principal); H53.8 Other visual disturbances
CPT/HCPCS: 93880

== ENCOUNTER → 2019-07-23 14:05 | Outpatient (POV) | payer BC, SELFPAY | PROVIDERS: Visit Provider Dermatology | DX: Z00.00 Encounter for general adult medical examination without abnormal findings (principal) ==

== ENCOUNTER → 2019-08-20 15:28 | Outpatient (CLI) | payer BC, SELFPAY | PROVIDERS: PCP Family Medicine; Visit Provider Internal Medicine Cardiovascular Disease | DX: R06.83 Snoring (principal); R40.0 Somnolence; R53.83 Other fatigue; R63.5 Abnormal weight gain; G47.33 Obstructive sleep apnea (adult) (pediatric) | CPT/HCPCS: G0399 ==

== ENCOUNTER → 2019-08-29 08:14 | Outpatient (CLI) | payer SELFPAY ==
--- NOTE | 2019-08-29 | CA_ITS ---
APPROVED REPORT Exam: Exercise Treadmill Technologist: Manjula Dodson, Ht: 5 ft 6 in Wt: 195 lbs BSA: 1.98 m2 HR: 61 bpm BP: 119/59 mmHg Rhythm: SINUS ARLIN,POOR R WAVE PROGRESSION,NS T WAVE ABNORMALITIES LOW QRS VOLTAGE. Indications: Palp/SOB/Abn EKG Medical History Medical History: Hyperlipidemia, HTN Medications: Levothyroxine,,,,, Meclizine,,,,, Venlafaxine,,,,, ApRemilast,,,,, TAMoxifen,,,,, Metoprol,,,,, Allergies: DOCETAXEL Cardiac Risk Factors: HTN, Hyperlipidemia Stress Test Details Test: Khurram HR Resting HR: 65 bpm Max Heart Rate (APMHR): 177 bpm Max HR Achieved: 155 bpm Target HR (85% APMHR): 150 bpm % of APMHR: 87 Recovery HR: 115 bpm BP Resting BP: 119.0/59.0 mmHg Max BP: 142.0/70.0 mmHg Recovery BP: 140.0/75.0 mmHg ECG Clinical Exercise duration: 10:01 min Highest Stage Achieved: Exercise capacity: 12.8 METs Stress ECG Conclusion PATIENT EXERCISED 10:00 ON KHURRAM PROTOCOL WITH MAX HEART RATE 155 BPM WHICH IS 88% OF PM FOR AGE. MAX BP 142/70. METS = 12.8. TEST STOPPED DUE TO SOA AND FATIGUE. NO CHEST PAIN. NO ARRHYTHMIAS/ECTOPY. NORMAL ST RESPONSE TO EXERCISE. NORMAL GXT MYOVIEW IMAGES REPORTED SEPARATELY Test Summary Stage 3 02:00 14.0 3.4 138 . . . . REST . . . . . . . Sitting REST 07:28 0.0 0.0 65 . 119/ 59 . . Stage 1 01:00 10.0 1.7 97 . . . . Stage 1 02:00 10.0 1.7 102 . . . . Stage 1 03:00 10.0 1.7 105 . 130/ 64 . . Stage 2 01:00 12.0 2.5 120 . . . . Stage 2 02:00 12.0 2.5 126 . . . . Stage 2 03:00 12.0 2.5 127 . 142/ 70 . . Stage 3 01:00 14.0 3.4 133 . . . . Stage 3 02:00 14.0 3.4 138 . . . . Stage 3 . . . . . . . Cardiolite injected Stage 3 03:00 14.0 3.4 144 . . . . Stage 4 01:00 16.0 4.2 153 . . . . Stage 4 01:01 16.0 4.2 153 . . . Stop exercise at 10:01 RECOVERY 01:00 0.0 0.0 116 . . . . RECOVERY 02:00 0.0 0.0 88 . . . . RECOVERY 03:00 0.0 0.0 89 . 128/ 74 . . RECOVERY 04:00 0.0 0.0 83 . 128/ 74 . . RECOVERY 05:00 0.0 0.0 68 . 124/ 77 . . RECOVERY 05:40 0.0 0.0 82 . 122/ 56 . . Electronically signed by : Vlad Ho, 08/29/2019 16:24:09
--- NOTE | 2019-08-29 08:14 | CT_ITS ---
PROCEDURE: CT HEART W CALCIUM SCORE CLINICAL HISTORY: dyspnea, palpitations COMPARISON: No exams were available for comparison TECHNIQUE: Axial images obtained with sagittal and coronal reformats. All CT scans at the facility use one or more dose reduction, viz: automated exposure control, ma/kV adjustment per patient size (including targeted exams where dose is matched to indication, i.e. head), or iterative reconstruction technique. FINDINGS: Coronary artery calcium score is 0. No identifiable calcific plaque with very low cardiovascular disease risk Incidental findings include bilateral breast prosthesis, multiple calcified mediastinal and hilar lymph nodes, scattered calcified granulomas, atelectatic or fibrotic changes in the right middle lobe. IMPRESSION: No identifiable calcific plaque with very low cardiovascular disease risk Dictated by: Michael Short MD 08/29/2019 15:31 Electronically signed by Michael Short MD in [place] 08/29/2019 15:31
== END ==
PROVIDERS: PCP Family Medicine; Visit Provider Internal Medicine Cardiovascular Disease
DX: R00.2 Palpitations (principal); R94.31 Abnormal electrocardiogram [ECG] [EKG]; K21.9 Gastro-esophageal reflux disease without esophagitis; R06.83 Snoring; R40.0 Somnolence; R53.83 Other fatigue; R63.5 Abnormal weight gain; Z85.3 Personal history of malignant neoplasm of breast; Z87.891 Personal history of nicotine dependence
CPT/HCPCS: 75571; 93017

== ENCOUNTER → 2019-08-29 08:51 | Outpatient (CLI) | payer BC, SELFPAY ==
--- NOTE | 2019-08-29 08:58 | CA_ITS ---
APPROVED REPORT EXAM: Comprehensive 2D, Doppler, and color-flow Echocardiogram Financial Planning Assistant: Nori Salinas, RT(R) Ht: 5 ft 6 in Wt: 199lbs BSA: 2.00 BP: 114/52 mmHg Indications: ex smoker, palpitations, fatigue, SOB, STACK, abn EKG, abn holter, GERD, hx of breast cancer with chemotherapy 2016 2D Dimensions LVOT 2.02 cm (M/F) 1.5-2.5 M-Mode Dimensions RVDd 2.64 cm (0.9-2.6) LVDd 4.97 cm (3.5-5.7) LVDs 3.64 cm (3.5-5.7) IVSd 0.61 cm (0.6-1.1) PWd 0.86 cm (0.6-1.1) EF (Teich) 52.10% FS 26.80% EDV (Teich) 116.60 mL ESV (Teich) 55.90 mL LV Diastology E/A Ratio 1.53 Mitral Valve MV A Velocity 44.00 (40-130 cm/s) Left Ventricle Left atrium is normal size, left ventricle is normal size, there is no concentric left ventricular hypertrophy, visually estimated ejection fraction 55% with no regional wall motion abnormality, diastolic parameters are within normal range. Right Ventricle Right atrium right ventricular normal size and contractility. Aortic Valve Aortic valve is grossly normal. Mitral Valve Mitral valve is grossly normal, there is mild mitral regurgitation. Tricuspid Valve Tricuspid valve is grossly normal, there is mild tricuspid regurgitation, tricuspid regurgitation jet velocity is inadequate for calculation of the right ventricular systolic pressure. Pulmonic Valve Pulmonic valve is poorly visualized. Great Vessels Aortic root is normal size. Pericardium No significant pericardial effusion noted. Conclusion 1. Normal left ventricular size, preserved left ventricular systolic function, visually estimated ejection fraction 55% with no regional wall motion abnormality, diastolic parameters are within normal range. 2. Mild mitral and tricuspid regurgitation. 3. No significant pericardial effusion noted. Electronically signed by : Vlad Ho, 08/30/2019 13:48:27
--- NOTE | 2019-08-29 09:27 | NM_ITS ---
APPROVED REPORT Exam: Nuclear Stress Test Indication: PALPITATIONS, SOB, ABN EKG, FATIQUE Patient Location: Outpatient Stress Tech: Trinity Kolb MD Tech:DEISY Proctor RT(R)(N) Ht: 5 ft 6 in Wt: 195 lbs Bra Size: IMPLANTS HR: 61 bpm BP: 119/59 mmHg BSA: 1.98 m2 BMI: 31.4 History: PALPITATIONS, SOB, ABN EKG, FATIQUE Procedure: Patient exercised on Khurram protocol 10:00 minutes and sec, resting heart rate 61 bpm, resting blood pressure 119/59 mmHg, with exercise maximum heart rate achived was 126 bpm which is Greater than 85 % of the maximum predicted heart rate and blood pressure was 142/70 mmHg. Patient denied any complaint of chest pain. Patient has Good exercise capacity, achieved 12.8 METs of workload on treadmill, the blood pressure response to exercise was Adequate. Electrocardiogram Resting electrocardiogram shows sinus rhythm nonspecific T wave changes, with exercise there is less than 1.[address] segment depression noted from the baseline EKG. The EKG portion of the exercise Myoview is negative for ischemia. Cardiac Stress and Resting SPECT Images: Cardiac Stress and Resting SPECT images were obtained using technetium 99m Myoview 29.3 mCi stress and 8.82 mCi at rest. Gated SPECT for analysis of segmental wall motion and calculation of the ejection fraction also done. Cardiac stress and resting SPECT images show uniform myocardial activity without segmental perfusion abnormality, computer derived ejection fraction is 60% with no regional wall motion abnormality, right ventricle is normal size and contractility. Conclusion: 1. The EKG portion of the exercise Myoview is negative for ischemia, patient has good exercise capacity achieved 12.8 mets of workload on treadmill, the blood pressure response to exercise was adequate, there was no exercise-induced chest discomfort. 2. No scintigraphic evidence of reversible ischemia seen, computer derived ejection fraction is 60% with no regional wall motion abnormality, right ventricle is normal size and contractility. 3. Normal exercise Myoview study. Electronically signed by : Vlad Ho, 08/29/2019 16:28:09
--- NOTE | 2019-08-29 16:23 | HMH.ITSHM ---
Current Home Medications as stated by this patient Sara Pickens or pharmaceutical sales representative. []VENALAFAXINE METOPROLOL MECLIZINE TAXOXIFAN LEVOTHYROXIN
== END ==
PROVIDERS: PCP Family Medicine; Visit Provider Internal Medicine Cardiovascular Disease
DX: R00.2 Palpitations (principal); R94.31 Abnormal electrocardiogram [ECG] [EKG]; K21.9 Gastro-esophageal reflux disease without esophagitis; R06.83 Snoring; R40.0 Somnolence; R53.83 Other fatigue; R63.5 Abnormal weight gain; Z85.3 Personal history of malignant neoplasm of breast; Z87.891 Personal history of nicotine dependence
CPT/HCPCS: 78452; 93306; A9502

== ENCOUNTER → 2019-11-08 13:22 | Outpatient (CLI) | payer BC, SELFPAY | PROVIDERS: PCP Family Medicine; Visit Provider Nurse Practitioner Family | DX: G47.33 Obstructive sleep apnea (adult) (pediatric) (principal) | CPT/HCPCS: 94762 ==

== ENCOUNTER → 2019-11-20 14:52 | Outpatient (CLI) | payer BC, SELFPAY ==
[2019-11-20 16:04] LABS: Free T4 (Free Thyroxine) 0.95 ng/dl (0.78-2.19)
[2019-11-20 16:55] LABS: Thyroid Stimulating Hormone 1.24 uIU/mL (0.465-4.68)
[2019-11-22 11:20] LABS: Vitamin B12 1175 pg/mL (232-1245)
== END ==
PROVIDERS: Visit Provider Physician Assistant
DX: E03.9 Hypothyroidism, unspecified (principal); E53.8 Deficiency of other specified B group vitamins
CPT/HCPCS: 36415; 82607; 84439; 84443

== ENCOUNTER → 2019-11-28 08:31 | Outpatient (CLI) | payer BC, SELFPAY ==
--- NOTE | 2019-11-28 08:33 | MR_ITS ---
PROCEDURE: MR HEAD/BRAIN WO/W CON CLINICAL INDICATION: VERTIGO, HEADACHE Dizziness and headache COMPARISON: No exams were available for comparison TECHNIQUE: Routine multiplanar multi echo sequences are performed without and with gadolinium enhancement. FINDINGS: No midline shift, mass effect, intracranial hemorrhage, or hydrocephalus is evident. No evidence of acute infarction. The cerebellopontine angles, cerebellum, and brainstem are unremarkable. No enhancing lesions are evident. There is normal T2 white matter hyperintensity. There does appear to be a small cystic area involving the pituitary anteriorly at 4 mm. The optic chiasm is unremarkable. The craniocervical junction has an unremarkable appearance. No mastoid effusion or sinus air-fluid level. IMPRESSION: 1. No acute intracranial findings. 2. Possible small cystic lesion of the pituitary. This could also be due to partial volume averaging artifact from a partial empty sella. MRI of the pituitary without and with contrast with dynamic post enhanced images may provide further evaluation. Dictated by: Michael Short MD 11/29/2019 12:10 Electronically signed by Michael Short MD in [facility] 11/29/2019 12:10
== END ==
PROVIDERS: PCP Family Medicine; Visit Provider Physician Assistant
DX: R42 Dizziness and giddiness (principal); R51 Headache
CPT/HCPCS: 70553; A9576

== ENCOUNTER → 2019-12-12 09:57 | Outpatient (CLI) | payer BC, SELFPAY | PROVIDERS: PCP Family Medicine; Visit Provider Physician Assistant | DX: E23.6 Other disorders of pituitary gland (principal) ==

== ENCOUNTER → 2019-12-16 15:29 | Outpatient (CLI) | payer BC, SELFPAY ==
--- NOTE | 2019-12-16 15:30 | MR_ITS ---
PROCEDURE: MR HEAD/BRAIN WO/W CON CLINICAL INDICATION: MASS OF PITUITARY Possible pituitary lesion Headache dizziness and blurred vision, history of breast cancer COMPARISON: MR HEAD/BRAIN WO/W CON from 11/28/2019 TECHNIQUE: Thin section pre and dynamic post enhancement performed of the uterine gland. FINDINGS: There is no evidence of mass of the pituitary gland. The abnormality noted on the brain MRI is felt to be secondary to partial volume averaging from concavity of the superior aspect of the pituitary gland has a normal variant. The pituitary stalk is not deviated. No abnormal enhancement. The optic chiasm has an unremarkable appearance. IMPRESSION: Unremarkable MRI of the pituitary gland. No pituitary mass evident. Dictated by: Michael Short MD 12/17/2019 08:54 Electronically signed by Michael Short MD in [facility] 12/17/2019 08:54
== END ==
PROVIDERS: PCP Physician Assistant; Visit Provider Physician Assistant
DX: E23.6 Other disorders of pituitary gland (principal)
CPT/HCPCS: 70553; A9576

== ENCOUNTER → 2020-09-22 14:02 | Outpatient (POV) | payer BC, SELFPAY | PROVIDERS: Visit Provider Dermatology | DX: Z00.00 Encounter for general adult medical examination without abnormal findings (principal) ==

== ENCOUNTER → 2020-10-01 14:11 | Outpatient (CLI) | payer BC, SELFPAY ==
[2020-10-01 15:36] LABS: Free T4 (Free Thyroxine) 0.91 ng/dl (0.78-2.19)
[2020-10-01 15:50] LABS: Thyroid Stimulating Hormone 1.96 uIU/mL (0.465-4.68)
[2020-10-01 16:13] LABS: Vitamin B12 > 1000 pg/mL (239-931)
== END ==
PROVIDERS: Visit Provider Physician Assistant
DX: E03.9 Hypothyroidism, unspecified (principal); E53.8 Deficiency of other specified B group vitamins
CPT/HCPCS: 36415; 82607; 84439; 84443

== ENCOUNTER → 2020-10-23 14:56 | Outpatient (CLI) | payer BC, SELFPAY ==
--- NOTE | 2020-10-23 15:03 | XR_ITS ---
PROCEDURE: XR CHEST PORTABLE CLINICAL HISTORY: COVID SCREENING Smoker COMPARISON: CR CXR2V XR chest 2V from 10/09/2017 FINDINGS: The cardiomediastinal silhouette and pulmonary vascularity are within normal limits. There are mild atelectatic or fibrotic changes in the right lower lung zone medially with patchy density noted in the right lung base which could be due to an area of atelectasis or infiltrate. The remaining lungs are clear. Right hemidiaphragm is slightly elevated. No acute bony abnormalities. IMPRESSION: Atelectasis or fibrosis in the right infrahilar region with atelectasis or infiltrate in the right lung base Dictated by: Michael Short MD 10/23/2020 16:22 Michael Short MD in [facility] 10/23/2020 16:22
[2020-10-23 17:15] LABS: Basophils # 0.1 K/mm3 (0-0.2); Basophils % 0.6 % (0.1-2.0); Eosinophils # 0.5 K/mm3 (0.0-0.4); Hemoglobin 13.4 g/dL (12.2-16.2); Lymphocytes # 3.7 K/mm3 (0.7-4.5); Lymphocytes % 35.7 % (10-50); Mean Corpuscular HGB Conc 31.8 g/dL (31.8-35.4); Mean Corpuscular Hemoglobin 27.2 pg (27.0-31.2); Mean Corpuscular Volume 85.6 fl (81-99); Mean Platelet Volume 7.6 fl (7.4-10.4); Monocytes # 0.6 K/mm3 (0.1-1.0); Monocytes % 5.7 % (1.7-9.3); Neutrophils # 5.4 K/mm3 (1.8-7.8); Neutrophils % 53.1 % (37.0-80.0); Platelet Count 382 K/mm3 (142-424); Red Blood Count 4.91 M/mm3 (4.20-5.40); White Blood Count 10.3 K/mm3 (4.8-10.8)
== END ==
PROVIDERS: PCP Family Medicine; Visit Provider Physician Assistant
DX: Z20.822 Contact with and (suspected) exposure to COVID-19 (principal)
CPT/HCPCS: 36415; 71045; 85025; U0003

== ENCOUNTER → 2021-03-19 11:13 | Outpatient (CLI) | payer BC, SELFPAY ==
--- NOTE | 2021-03-19 11:20 | CT_ITS ---
PROCEDURE: CT ABDOMEN PELVIS WO CON CLINICAL INDICATION: ABD PAIN COMPARISON: CT ABDPELWO CT abdomen pelvis wo con from 10/09/2017 TECHNIQUE: Axial images obtained with sagittal and coronal reformats. All CT scans at the facility use one or more dose reduction, viz: automated exposure control, ma/kV adjustment per patient size (including targeted exams where dose is matched to indication, i.e. head), or iterative reconstruction technique. FINDINGS: Lower thorax: The lower lung holguin are clear. There is no pleural fluid. There is a calcified granuloma left lower lobe. There is minimal atelectasis right lower lobe. There are bilateral breast implants ABDOMEN: Liver: No masses or biliary dilatation. Gallbladder: Post cholecystectomy Pancreas: No masses or peripancreatic fluid collections. Spleen: unremarkable Adrenals: unremarkable Kidneys/ureters: Kidneys are normal in size and no calculi there is no obstructive uropathy. ABDOMEN & PELVIS: Stomach bowel: The stomach is mildly distended with ingested food particles and fluid normal. The duodenal sweep is normal. The small bowel is unremarkable. The appendix is normal. There is moderate scattered stool and gas seen throughout the colon. There are few diverticuli in the sigmoid colon but there is no evidence of diverticulitis. The rectum is normal. Peritoneum: No abnormal fluid collections. No obvious inflammatory changes. No free air. Lymph nodes: No enlarged lymph nodes apparent. Vasculature: No evidence of abdominal aortic aneurysm. No retroperitoneal hemorrhage evident. Bones: No acute fracture PELVIS: Reproductive: The uterus is normal size and in the midline. There are bilateral tubal ligation clips. Bladder: The urinary bladder is partially decompressed however appears normal, there is no free fluid in the pelvis. Appendix: Normal IMPRESSION: No acute abdominal or pelvic pathology identified Dictated by: Dr. Emil Ruggiero MD 03/19/2021 12:27 Dr. Emil Ruggiero MD in [facility] 03/19/2021 12:27
== END ==
PROVIDERS: PCP Nurse Practitioner Family; Visit Provider Nurse Practitioner Family
DX: R10.9 Unspecified abdominal pain (principal)
CPT/HCPCS: 74176

== ENCOUNTER → 2021-06-23 14:25 | Outpatient (CLI) | payer BC, SELFPAY ==
--- NOTE | 2021-06-23 14:38 | XR_ITS ---
PROCEDURE: XR CHEST 2V CLINICAL HISTORY: BRONCHITIS,COSTOCHONDRITIS COMPARISON: CR CXR2V XR chest 2V from 10/09/2017 CR XR CHEST PORTABLE from 10/23/2020 CR XR RIBS RT MIN 3V W CXR1V from 06/23/2021 FINDINGS: The cardiomediastinal silhouette and pulmonary vascularity are within normal limits. Bibasilar atelectasis with patchy infiltrate in the right lower lobe. Upper lobes are clear. There is a vague rounded area of increased density overlying the left lower lung zone laterally. No acute bony abnormalities. IMPRESSION: Bibasilar atelectasis with right lower lobe infiltrate. Vague rounded area of density noted overlying the left lower lung zone laterally and could be due to an area of rounded pneumonia or developing nodule. Follow-up chest x-ray suggested. If this persists then, CT may be needed for further evaluation. Dictated by: Michael Short MD 06/23/2021 15:33 Michael Short MD in [facility] 06/23/2021 15:33
--- NOTE | 2021-06-23 14:38 | XR_ITS ---
PROCEDURE: XR RIBS RT MIN 3V W CXR1V CLINICAL INDICATION: BRONCHITIS,COSTOCHONDRITIS COMPARISON: CR CXR2V XR chest 2V from 10/09/2017 CR XR CHEST PORTABLE from 10/23/2020 CR XR CHEST 2V from 06/23/2021 FINDINGS: Minimally offset fracture involves the lateral aspect of the right 6th rib with some mild overlying pleural thickening. No evidence of pneumothorax. IMPRESSION: Minimally offset fracture right 6th rib laterally with overlying pleural thickening Dictated by: Michael Short MD 06/23/2021 15:48 Michael Short MD in [facility] 06/23/2021 15:48
[2021-06-23 15:21] LABS: Basophils # 0.1 K/mm3 (0-0.2); Basophils % 0.6 % (0.1-2.0); Eosinophils # 0.6 K/mm3 (0.0-0.4); Eosinophils % 5.1 % (0.1-12.0); Hematocrit 39.6 % (37.0-47.0); Hemoglobin 13.5 g/dL (12.2-16.2); Lymphocytes # 3.8 K/mm3 (0.7-4.5); Lymphocytes % 30.4 % (10-50); Mean Corpuscular Hemoglobin 28.7 pg (27.0-31.2); Mean Corpuscular Volume 84.4 fl (81-99); Mean Platelet Volume 8.3 fl (7.4-10.4); Monocytes # 0.6 K/mm3 (0.1-1.0); Monocytes % 4.8 % (1.7-9.3); Neutrophils # 7.4 K/mm3 (1.8-7.8); Platelet Count 387 K/mm3 (142-424); Red Blood Count 4.69 M/mm3 (4.20-5.40); Red Cell Distribution Width 13.1 % (11.5-17.5); White Blood Count 12.5 K/mm3 (4.8-10.8)
== END ==
PROVIDERS: PCP Family Medicine; Visit Provider Nurse Practitioner Family
DX: J40 Bronchitis, not specified as acute or chronic (principal)
CPT/HCPCS: 36415; 71046; 71101; 85025

== ENCOUNTER → 2021-07-12 11:44 | Outpatient (CLI) | payer BC, SELFPAY ==
--- NOTE | 2021-07-12 11:48 | XR_ITS ---
PROCEDURE: XR CHEST 2V CLINICAL HISTORY: COMMUNITY ACQUIRED, PNEUMONIA COMPARISON: CR XR CHEST PORTABLE from 10/23/2020 CR XR RIBS RT MIN 3V W CXR1V from 06/23/2021 CR XR CHEST 2V from 06/23/2021 CR XR RIBS RT 2V from 07/12/2021 FINDINGS: The cardiomediastinal silhouette and pulmonary vascularity are within normal limits. Atelectatic changes are present in the right midlung and left mid and lower lung zone slightly increased on the left. There is a mildly displaced right 6th rib fracture laterally with overlying pleural reaction. No evidence of pneumothorax. IMPRESSION: Mildly displaced right 6th rib fracture with overlying pleural reaction and the bilateral atelectatic changes Dictated by: Michael Short MD 07/12/2021 14:18 Michael Short MD in [facility] 07/12/2021 14:18
--- NOTE | 2021-07-12 11:48 | XR_ITS ---
PROCEDURE: XR RIBS RT 2V CLINICAL INDICATION: CLOSED FRACUTRE OF ONE RIB OF RT SIDE W/ ROUTINE HEALING COMPARISON: CR XR RIBS RT MIN 3V W CXR1V from 06/23/2021 FINDINGS: Right 6th rib fracture is once again noted laterally. The distal fracture fragment is displaced medially by approximately 4 mm with slightly greater medial displacement compared to the previous exam. There is overlying pleural reaction also somewhat greater. Atelectatic changes are present in the right lower lobe. No evidence of pneumothorax. IMPRESSION: Mildly displaced right 6th rib fracture with slightly greater displacement and pleural reaction compared to the previous exam Dictated by: Michael Short MD 07/12/2021 14:01 Michael Short MD in [facility] 07/12/2021 14:01
== END ==
LOC: RAD 11:45
PROVIDERS: PCP Family Medicine; Visit Provider Family Medicine
DX: J18.9 Pneumonia, unspecified organism (principal); S22.31XD Fracture of one rib, right side, subsequent encounter for fracture with routine healing
CPT/HCPCS: 71046; 71100

== ENCOUNTER → 2021-07-20 13:58 | Outpatient (CLI) | payer BC, SELFPAY ==
--- NOTE | 2021-07-20 14:04 | CT_ITS ---
FINAL REPORT CLINICAL HISTORY: ABN CXR, no chest complaints, hx of bilat mastectomy FINDINGS: Axial CT images of the chest were obtained with contrast. Coronal reformatted images were also obtained. This study was performed with techniques to keep radiation doses as low as reasonably achievable, (ALARA). Individualized dose reduction techniques using automated exposure control or adjustment of mA and/or KV according to the patient's size were employed. There are bilateral subglandular breast implants. There are small right paratracheal, subcarinal and hilar lymph nodes, some of which are partially calcified and probably post-inflammatory. No axillary mass or adenopathy is identified. On lung window images, there is some pleural scarring and associated healed right rib fracture. There is a cluster of small nodules in the left lower lobe well seen on images 37 through 40 of series 2. There is a partially calcified nodule in the left lower lobe on image 42 of series 2. There are some more definitely calcified granulomas in both lung bases. No localized pulmonary inflammatory process is identified. Limited images of the upper abdomen reveal fatty infiltration of the liver. The gallbladder is absent. IMPRESSION: Small cluster of noncalcified nodules in the left lower lobe favored to be post-inflammatory. Recommend follow-up in one year to ensure stability. Fatty liver. Reviewed, Interpreted and Dictated by Alex Veras MD Transcribed by Pat Santana Authenticated by Alex Veras MD on 07/20/2021 04:19:35 PM [facility]
== END ==
LOC: RAD 13:58
PROVIDERS: PCP Family Medicine; Visit Provider Family Medicine
DX: R93.89 Abnormal findings on diagnostic imaging of other specified body structures (principal)
CPT/HCPCS: 71260; Q9967

== ENCOUNTER 2024-01-19 17:58 | Emergency (ER) | payer BC, SELFPAY ==
[2024-01-19 18:10] VITALS: BP 110/67; PULSE 59; RESP 19; TEMP 36.5; O2SAT 96; BMI 31.1
--- NOTE | 2024-01-19 18:23 | EXP.UTC ---
Discharge Plan Disposition Patient Disposition: Home, Self-Care Condition: Good Prescriptions Prescriptions: New methylprednisolone 4 mg Tablets,Dose Pack 4 mg PO DIRECTED 6 Days Qty: 21 0RF Rx Instructions: Take 1 pack as directed for 6 days hydroxyzine pamoate [Vistaril] 25 mg capsule 25 mg PO Q6H PRN (Reason: itching) Qty: 30 0RF triamcinolone acetonide 0.1 % cream 1 applic topical BID PRN (Reason: itching) Qty: 60 2RF famotidine 20 mg tablet 20 mg PO BID 14 Days Qty: 28 0RF No Action metoprolol succinate 25 mg tablet extended release 24 hr 25 mg PO DAILY rosuvastatin 5 mg tablet 5 mg PO DAILY (DME) pen needle, diabetic [Comfort EZ [place]] 32 gauge x 5/32 needle See Rx Instructions .Route Qty: 100 11RF Rx Instructions: As directed venlafaxine 150 mg capsule,extended release 24hr 150 mg PO DAILY Qty: 90 3RF Wegovy 2.4 mg/0.75 mL pen injector See Rx Instructions .ROUTE .COMPLEX Qty: 4 0RF Dose Instruction: INJECT 1 SYRINGE SUBCUTANEOUSLY ONCE A WEEK Rx Instructions: INJECT 1 SYRINGE SUBCUTANEOUSLY ONCE A WEEK methylprednisolone [Medrol ([place]ong)] 4 mg tablets,dose pack 4 mg PO PER PKG DIR 6 Days Qty: 21 0RF triamcinolone acetonide 0.025 % cream 1 applic topical BID Qty: 80 0RF Referrals Follow up/Referrals: Elana Vicente PA [Primary Care Provider] - See instructions Activity Restrictions/Add. Instructions Additional Instructions/Restrictions: Try to identify and avoid contact with the offending substance. Don't start the oral steroids until tomorrow. The vistaril (hydroxyzine) will make you drowsy, so don't drive or operate heavy machinery after taking it. Don't take this and benedryl because they are similar medications and they will make you too drowsy together. Don't put the topical steroids (triamcinolone) on your face or your groin. Follow up with your regular doctor. GO TO THE ER FOR ANY WORSENING SYMPTOMS OR CONCERNS Clinical Impressions Clinical Impression: Contact dermatitis Instructions Patient Instructions: DI for Contact Dermatitis, Hydroxyzine, Dexamethasone Injection Discharge ED Provider: Lorenzo Arredondo [facility] HPI General Stated complaint: rash Mode of Arrival: Ambulatory Source of Information: Patient Limitations: No Limitations Time Seen by Provider: 01/19/24 18:07 Description of Symptoms (Recalled from Triage Doc. by RN): Pt's symptoms are rash all over body. She has poision nhan outbreak. She is on her last dose of oral steroids and topical cream. HEENT Symptoms (Recalled from RN notes): Yes Resp Symptoms (Recalled from RN notes): No Skin Symptoms (Recalled from RN notes): No MS Symptoms (Recalled from RN notes): No Functional Status (Recalled from RN notes): n/a Related Data Home Medications Medication Instructions Recorded Confirmed metoprolol succinate 25 mg 25 mg PO DAILY 12/27/22 01/19/24 tablet,extended release 24 hr rosuvastatin 5 mg tablet 5 mg PO DAILY 12/27/22 01/19/24 Previous Rx's Medication Instructions Recorded pen needle, diabetic 32 gauge x #100 ea 12/28/2232 (Comfort EZ [place]) venlafaxine 150 mg 150 mg PO DAILY #90 caps 10/22/23 capsule,extended release 24 hr semaglutide (weight loss) 2.4 See Rx Instructions .Route 01/05/24 mg/0.75 mL subcutaneous pen .COMPLEX #4 mL injector (Wegovy) methylprednisolone 4 mg tablets in 4 mg PO PER PKG DIR 6 days #21 tabs 01/15/24 a dose pack (Medrol ([place]ong)) triamcinolone acetonide 0.025 % 1 applic topical BID #80 grams 01/15/24 topical cream famotidine 20 mg tablet 20 mg PO BID 14 days #28 tabs 01/19/24 hydroxyzine pamoate 25 mg capsule 25 mg PO Q6H PRN itching #30 caps 01/19/24 (Vistaril) methylprednisolone 4 mg tablets in 4 mg PO DIRECTED 6 days #21 tabs 01/19/24 a dose pack triamcinolone acetonide 0.1 % 1 applic topical BID PRN itching 01/19/24 topical cream #60 grams Allergies Allergy/AdvReac Type Severity Reaction Status Date / Time docetaxel [From Taxotere] Allergy Verified 01/19/24 18:19 Worker's Comp Is this a Worker's Comp case?: No [facility] Disclaimer: The information contained in this section may have been updated after the patient was seen, as this information can be updated by other users. Medical History (Updated 01/19/24 @ 19:01 by Lorenzo Arredondo APRN) Plaque psoriasis History of left breast cancer PVC (premature ventricular contraction) History of chemotherapy Dizziness Weight gain Fatigue Daytime somnolence Snoring Abnormal EKG Palpitations Surgical History H/O bilateral mastectomy Social History Smoking Status: Current every day smoker tobacco type: cigarettes alcohol intake: current alcohol intake frequency: holidays/special occasions only counseling provided: provider counseling substance use type: denies use current occupational status: employed Travel in the last 8 weeks: Inside the [place] household members: spouse and children housing: house caffeine: Yes ROS Obtained: Yes All systems reviewed & no additional complaints except as documented Constitutional Constitutional: Denies chills and Denies fever(s) Eyes Eyes: Denies eye discharge ENT Ears, Nose, Mouth, and Throat: Denies dizziness, Denies otalgia and Denies sore throat Cardiovascular Cardiovascular: Denies chest pain Respiratory Respiratory: Denies shortness of breath, Denies chest congestion, Denies cough, Denies stridor and Denies wheezing Gastrointestinal Gastrointestingal: Denies nausea or vomiting Musculoskeletal Musculoskeletal: Reports system reviewed and no additional complaints, except as documented and Denies arthralgias Integumentary/Breasts Skin/Breast: Reports rash Neurologic Neurologic: Denies dizziness and Denies paresthesias Allergic/Immunologic Allergic/Immunologic: Denies wheezing Physical Exam General General appearance: alert and in no apparent distress Head Head exam: atraumatic, normocephalic and normal inspection Eye Eye exam: Present normal appearance, PERRL and EOMI ENT ENT exam: Present normal exam, normal oropharynx, mucous membranes moist, TM's normal bilaterally and normal external ear exam Neck Neck exam: Present normal inspection, full ROM and trachea midline; Absent meningismus or lymphadenopathy Chest Chest inspection: Present normal inspection and symmetric chest wall rise; Absent tenderness Respiratory Respiratory exam: Present normal lung sounds bilaterally; Absent respiratory distress Cardiovascular Cardiovascular exam: Present regular rate and normal rhythm; Absent JVD Abdominal Exam Abdominal exam: Present soft and normal bowel sounds; Absent distention, tenderness or guarding Extremities Exam Extremities exam: Present normal inspection, full ROM and normal capillary refill; Absent calf tenderness Back Exam Back exam: Present normal inspection; Absent tenderness Neurological Exam Neurological exam: Present alert and oriented X3 Psychiatric Psychiatric exam: Present normal affect and normal mood Skin Skin exam: Present rash Lymphatic Lymphatic Findings: no adenopathy Medical Decision Making Medical Records Medical records reviewed: No I reviewed the patient's medical records. Saleem Inquiry Pt receiving controlled substance: No Vital Signs: 01/19/24 18:10 Temperature 97.7 F Temperature Source Oral Pulse Rate [Right Radial] 59 L Respiratory Rate 19 Blood Pressure [Right Arm] 110/67 Blood Pressure Mean [Right Arm] 81 Blood Pressure Source [Right Arm] Automatic Cuff Blood Pressure Position [Right Arm] Sitting 02 Sat by Pulse Oximetry 96 Oxygen Delivery Method Room Air
[2024-01-19] MEDS: DEXAMETHASONE 4MG/ML 1ML VIAL 8 MG IM (18:26)
[2024-01-19 19:10] VITALS: BP 169/72; PULSE 83; RESP 17; TEMP 36.9; O2SAT 98
== END 2024-01-19 19:09 | disposition home or self-care (01) ==
PROVIDERS: Emergency Provider Nurse Practitioner Family; PCP Physician Assistant
DX: L23.7 Allergic contact dermatitis due to plants, except food (principal); W60.XXXA Contact with nonvenomous plant thorns and spines and sharp leaves, initial encounter
CPT/HCPCS: 96372; 99204; 99212; G0463; J1100

== ENCOUNTER 2024-08-15 08:00 | Outpatient (RCR) | payer OTHER, BC, SELFPAY | END 2024-08-15 23:59 | disposition home or self-care (01) | LOC: OT 08:00 | PROVIDERS: Visit Provider Orthopaedic Surgery | DX: Z98.890 Other specified postprocedural states (principal); M25.512 Pain in left shoulder | CPT/HCPCS: 97014; 97110; 97140; 97166; G0283 ==

== ENCOUNTER 2024-09-12 11:00 | Outpatient (RCR) | payer OTHER, BC, SELFPAY | END 2024-09-12 23:59 | disposition home or self-care (01) | LOC: OT 11:00 | PROVIDERS: Visit Provider Orthopaedic Surgery | DX: Z98.890 Other specified postprocedural states (principal) | CPT/HCPCS: 97014; 97110; 97140; 97168; 97530; G0283 ==

== ENCOUNTER 2024-10-10 11:00 | Outpatient (RCR) | payer OTHER, BC, SELFPAY | END 2024-10-10 23:59 | disposition home or self-care (01) | LOC: OT 11:00 | PROVIDERS: Visit Provider Orthopaedic Surgery | DX: Z98.890 Other specified postprocedural states (principal) | CPT/HCPCS: 97014; 97110; 97140; 97168; G0283 ==

== ENCOUNTER 2024-11-12 11:00 | Outpatient (RCR) | payer OTHER, BC, SELFPAY | END 2024-11-12 23:59 | disposition home or self-care (01) | LOC: OT 11:00 | PROVIDERS: Visit Provider Orthopaedic Surgery | DX: Z98.890 Other specified postprocedural states (principal) | CPT/HCPCS: 97010; 97014; 97110; 97140; 97168; G0283 ==

== ENCOUNTER 2024-12-12 11:00 | Outpatient (RCR) | payer OTHER, BC, SELFPAY | END 2024-12-12 23:59 | disposition home or self-care (01) | LOC: OT 11:00 | PROVIDERS: Visit Provider Orthopaedic Surgery | DX: Z47.89 Encounter for other orthopedic aftercare (principal); Z98.890 Other specified postprocedural states | CPT/HCPCS: 97014; 97110; 97140; 97168; G0283 ==

== ENCOUNTER 2025-01-09 11:00 | Outpatient (RCR) | payer OTHER, BC, SELFPAY | END 2025-01-09 23:59 | disposition home or self-care (01) | LOC: OT 11:00 | PROVIDERS: Visit Provider Orthopaedic Surgery | DX: Z47.89 Encounter for other orthopedic aftercare (principal); Z98.890 Other specified postprocedural states | CPT/HCPCS: 97014; 97110; 97140; 97168; G0283 ==